=== PATIENT | female | born 1950 | race Two or more races ===

== ENCOUNTER 2017-09-13 10:50 | Outpatient (CLI) | payer MEDICARE, MEDICAID | END 2017-09-13 23:59 | disposition home or self-care (01) | LOC: WOU 10:50 | PROVIDERS: ATTEND Podiatrist Foot & Ankle Surgery | DX: L85.1 Acquired keratosis [keratoderma] palmaris et plantaris (principal); M79.671 Pain in right foot; M21.40 Flat foot [pes planus] (acquired), unspecified foot; I87.2 Venous insufficiency (chronic) (peripheral) | CPT/HCPCS: A6402; G0463; Z7610 ==